=== PATIENT | male | born 1970 | race Two or more races ===

== ENCOUNTER 2025-11-15 22:01 | Emergency (ER) | payer OTHER ==
[~2025-11-15] VITALS: Ht 175.3 cm; Wt 124.7 kg
[2025-11-15] MEDS ORDERED: 0.9 % SODIUM CHLORIDE 1,000 ML IV STA (22:55)
[2025-11-16 00:07] LABS: BASO % 0.7 % (0.1-1.2); EOS # 0.07 (0.04-0.54); EOS % 0.8 % (0.7-7.0); LYMPH # 1.79 (1.18-3.74); LYMPH % 20.0 % (19.3-53.1); MEAN PLATELET VOLUME 10.10 fl (9.4-12.4); MONO # 0.69 (0.24-0.82); MONO % 7.7 % (4.7-12.5); NEUT # 6.33 (1.56-6.13); NEUT % 70.7 % (34.0-71.1); RED CELL DISTRIBUTION WIDTH 12.9 % (11.6-14.4)
[2025-11-16 00:32] LABS: ERYTHROCYTE SEDIMENTATION RATE 39 mm/hr (0-20)
[2025-11-16 01:53] LABS: URINE APPEARANCE Clear; URINE BILIRRUBIN Negative (NEGATIVE); URINE BLOOD Negative; URINE COLOR Yellow; URINE GLUCOSE Negative (NEGATIVE); URINE KETONE 15 (NEGATIVE); URINE LEUKOCYTE Trace; URINE NITRATE Negative; URINE PROTEIN Trace (NEGATIVE); URINE UROBILINOGEN 1.0 E.U./dl
[2025-11-16 01:57] LABS: URINE BACTERIA 26.3 uL (0.0-1933); URINE EPITHELIAL CELLS 4.1 uL (0.0-38.8); URINE RBC 2.1 uL (0.0-20.8); URINE WBC 13.0 uL (0.0-23.2)
[2025-11-16 02:06] LABS: INR 1.11
[2025-11-16 02:12] LABS: ALT/SGPT 40.0 U/L (12-78); AST/SGOT 25.0 U/L (15-37); BILIRUBIN TOTAL 0.51 mg/dL (0.3-1.2); BUN CREA RATIO 19.0 (7.0-25.0); CREATININE SERUM 0.7 mg/dL (0.70-1.30); GFR 117.52; GLOBULINA 4.8 G/DL (2.4-3.5); GLUCOSE FASTING 97.0 mg/dL (65-100); OSMOLALITY SERUM 279.0 MOSM/KG (275-295)
[2025-11-16 02:19] LABS: URINE CAST 0.14 uL (0.0-1.40); URINE SPERM FEW
== END 2025-11-16 03:36 ==
LOC: ER 22:01
PROVIDERS: Physician Assistant Medical
DX: R07.9 Chest pain, unspecified (principal)